=== PATIENT | female | born 1945 | race Caucasian/White ===

== ENCOUNTER 2018-03-24 19:29 | Emergency (ER) | payer MEDICARE ==
[~2018-03-24] VITALS: Ht 157.5 cm; Wt 80.5 kg
[2018-03-24] MEDS ORDERED: fentaNYL/PF 50MCG/1 ML 2ML syringe IV ONE (19:40)
[2018-03-24] MEDS ORDERED: ondansetron/PF 4mg/2ml inj IV ONE (19:40)
[2018-03-24] MEDS ORDERED: propofol 10mg/ml 20ml vial IV ONE (20:15)
[2018-03-24] MEDS ORDERED: morphine 4 MG/ML inj SYRINge IV ONE (20:20)
[2018-03-24] MEDS ORDERED: ondansetron 4mg rapidly disintigrating tab PO ONE (21:30)
[2018-03-24] MEDS ORDERED: TRAM50TA2 PO (21:43)
[2018-03-24 21:51] VITALS: BP 149/86
== END 2018-03-24 22:00 | disposition home or self-care (01) ==
LOC: ER 19:30
DX: S43.004A Unspecified dislocation of right shoulder joint, initial encounter (principal); S80.02XA Contusion of left knee, initial encounter; Z98.84 Bariatric surgery status; Z88.0 Allergy status to penicillin; Z88.5 Allergy status to narcotic agent; Z79.899 Other long term (current) drug therapy; W01.0XXA Fall on same level from slipping, tripping and stumbling without subsequent striking against object, initial encounter; Y93.89 Activity, other specified; Y92.89 Other specified places as the place of occurrence of the external cause; Y99.8 Other external cause status
CPT/HCPCS: 23650; 73030; 73560; 96374; 96375; 99152; 99285; J2270; J2405; J2704; J3010; J7030; L3650